=== PATIENT | male | born 1970 | race Hispanic/Latino ===

== ENCOUNTER → 2019-08-18 | Outpatient (CLI) | payer OTHER, MEDICARE | END | disposition home or self-care (01) | LOC: WHH 09:55 | PROVIDERS: ATTEND Podiatrist Foot & Ankle Surgery | DX: I70.235 Atherosclerosis of native arteries of right leg with ulceration of other part of foot (principal); L97.511 Non-pressure chronic ulcer of other part of right foot limited to breakdown of skin; I70.245 Atherosclerosis of native arteries of left leg with ulceration of other part of foot; L97.521 Non-pressure chronic ulcer of other part of left foot limited to breakdown of skin; I70.233 Atherosclerosis of native arteries of right leg with ulceration of ankle; L97.311 Non-pressure chronic ulcer of right ankle limited to breakdown of skin | CPT/HCPCS: 73630 ×2; 99205; A6207 ==

== ENCOUNTER 2020-06-20 17:57 | Inpatient (IN) | payer MEDICARE ==
[~2020-06-20] VITALS: Ht 167.6 cm; Wt 81.0 kg
[2020-06-20 22:20] VITALS: BP 101/66
[2020-06-20] MEDS ORDERED: ALPR2TAB7 PO (22:54)
[2020-06-20] MEDS ORDERED: OXYC30TA2 PO (22:54)
[2020-06-20] MEDS ORDERED: GABA800T9 PO (22:54)
[2020-06-20] MEDS ORDERED: ALBU2.5V2 NEB (22:54)
[2020-06-20] MEDS ORDERED: FLUT1BLS3 IH (22:54)
[2020-06-21] VITALS (27 sets, daily range): BP systolic 89–129; BP diastolic 52–82
[2020-06-21] MEDS ORDERED: LABETALOL HCL 5 MG/ML 20ML VIAL IV PRN
[2020-06-21] MEDS ORDERED: ONDANSETRON HCL 4 MG/2 ML VIAL IVP PRN
[2020-06-21 00:22] LABS: ALBUMIN 1.9 g/dL (3.5-5.0); BILIRUBIN,TOTAL 0.3 mg/dL (0.2-1.0); CREATININE 0.6 mg/dL (0.5-1.5); POTASSIUM 4.4 mmol/L (3.5-5.1); TOTAL PROTEIN, SERUM 7.7 g/dL (6.0-8.3)
[2020-06-21 00:27] LABS: BASOPHILS % (AUTO) 0.4 % (0.0-5.0); EOSINOPHILS % (AUTO) 0.4 % (0.0-8.0); HEMATOCRIT 23.1 % (42-54); LYMPHOCYTES % (AUTO) 42.7 % (21.0-51.0); MEAN CORPUSCULAR HEMOGLOBIN 21.5 pg (27.0-33.0); MEAN CORPUSCULAR HGB CONC 30.7 g/dL (32.0-36.0); MONOCYTES % (AUTO) 10.8 % (3.0-13.0); NEUTROPHILS % (AUTO) 45.2 % (40.0-77.0); PLATELET COUNT (AUTO) 449 K/uL (130-400); RED CELL DISTRIBUTION WIDTH 21.5 % (11.0-15.5)
[2020-06-21] MEDS ORDERED: HYDROMORPHONE HCL 0.5 MG/0.5 ML ML IVP PRN (00:30)
[2020-06-21] MEDS ORDERED: HYDROMORPHONE HCL 0.5 MG/0.5 ML ML ONE (00:33)
[2020-06-21] MEDS ORDERED: ACETAMINOPHEN 325 MG TAB PO PRN (02:00)
[2020-06-21] MEDS ORDERED: PHARMACY COMMUNICATION MISC SCH (02:00)
[2020-06-21] MEDS: MEROPENEM 1 GM VIAL IVP SCH ×3 (06:00→20:18)
[2020-06-21] MEDS ORDERED: MEROPENEM 1 GM VIAL ONE (06:18)
[2020-06-21] MEDS: HYDROMORPHONE HCL 0.5 MG/0.5 ML ML IVP PRN ×2 (06:36→10:15)
[2020-06-21] MEDS ORDERED: BUDESONIDE 0.5 MG/2 ML INH IH ONE (07:08)
[2020-06-21] MEDS: BUDESONIDE 0.5 MG/2 ML INH IH SCH ×2 (07:11→18:24)
[2020-06-21] MEDS ORDERED: COMPOUND IV MISC 1 EACH IVSOLN MISC PRN (07:30)
[2020-06-21] MEDS: OXYCODONE HCL 20 MG TAB.SR.12H PO SCH ×2 (08:31→20:17)
[2020-06-21] MEDS: SIMETHICONE 80 MG TAB.CHEW PO SCH ×3 (09:00→20:17)
[2020-06-21] MEDS: POLYETHYLENE GLYCOL 3350 17 GM POWD.PACK PO SCH (09:00)
[2020-06-21] MEDS: SENNOSIDES 8.6 MG TABLET PO SCH ×2 (09:00→20:17)
[2020-06-21] MEDS: PANTOPRAZOLE SODIUM 40 MG TABLET.DR PO SCH (09:00)
[2020-06-21] MEDS: GABAPENTIN 300 MG CAPSULE PO SCH ×3 (09:00→20:17)
[2020-06-21] MEDS: NICOTINE 14 MG/ 24 HR PATCH TD SCH (09:00)
[2020-06-21] MEDS: MIDODRINE HCL 5 MG TABLET PO SCH ×3 (09:00→20:17)
[2020-06-21] MEDS: BALSAM PERU/CASTOR OIL 60 GM TUBE TP SCH ×2 (09:00→20:21)
[2020-06-21] MEDS: VITAMIN D3 1000 UNIT PO SCH (09:00)
[2020-06-21] MEDS ORDERED: SODIUM CHLORIDE 0.9% 1000ML 1,000 ML IV ONE (11:29)
[2020-06-21] MEDS ORDERED: DEXAMETHASONE SOD PHOSPHATE 10MG/ML 1ML VIAL ONE (12:23)
[2020-06-21] MEDS ORDERED: ROCURONIUM 10MG/1ML SYR 10 MG/ML ML ONE ×2 (12:24→14:09)
[2020-06-21] MEDS ORDERED: MIDAZOLAM HCL 1 MG/ML 2ML VIAL ONE (12:24)
[2020-06-21] MEDS ORDERED: ONDANSETRON HCL 4 MG/2 ML VIAL ONE (12:24)
[2020-06-21] MEDS ORDERED: PROPOFOL 10 MG/ML 20ML VIAL IV ONE (12:24)
[2020-06-21] MEDS ORDERED: LIDOCAINE HCL MPF 1% 5ML VIAL ONE (12:24)
[2020-06-21] MEDS ORDERED: FENTANYL CITRATE PF 50 MCG/1 ML 2ML VIAL ONE ×2 (12:24→13:08)
[2020-06-21] MEDS ORDERED: PHENYLEPHRINE HCL 10 MG/ML 1ML VIAL IV ONE (13:22)
[2020-06-21] MEDS ORDERED: EPHEDRINE SULFATE 50 MG/ML AMPULE ONE (16:06)
[2020-06-21] MEDS ORDERED: NEOSTIGMINE 5MG/5ML SYR IV ONE (16:10)
[2020-06-21] MEDS ORDERED: GLYCOPYRROLATE 1 MG/5 ML SYRINGE ONE (16:10)
[2020-06-21] MEDS ORDERED: MEPERIDINE-PF 25 MG/ML SYG ONE (17:13)
[2020-06-21] MEDS: DAPTOMYCIN 500 MG in SODIUM CHLORIDE 0.9% 50 ML IV SCH (19:13)
[2020-06-21] MEDS: NIACIN 250 MG TABLET.SA PO SCH (20:17)
[2020-06-22] VITALS (8 sets, daily range): BP systolic 87–115; BP diastolic 54–75
[2020-06-22] MEDS: HYDROMORPHONE 1 MG/1 ML AMP IVP PRN ×5 (00:31→21:26)
[2020-06-22 04:38] LABS: BASOPHILS % (AUTO) 0.2 % (0.0-5.0); EOSINOPHILS % (AUTO) 0.2 % (0.0-8.0); HEMATOCRIT 24.9 % (42-54); LYMPHOCYTES % (AUTO) 36.3 % (21.0-51.0); MEAN CORPUSCULAR HEMOGLOBIN 22.1 pg (27.0-33.0); MEAN CORPUSCULAR HGB CONC 30.9 g/dL (32.0-36.0); MEAN CORPUSCULAR VOLUME 71.3 fL (79-99); MONOCYTES % (AUTO) 9.4 % (3.0-13.0); NEUTROPHILS % (AUTO) 53.4 % (40.0-77.0); PLATELET COUNT (AUTO) 399 K/uL (130-400); RED BLOOD CELL COUNT(AUTO) 3.49 MIL/uL (4.50-6.20); RED CELL DISTRIBUTION WIDTH 20.1 % (11.0-15.5); WHITE BLOOD COUNT (AUTO) 10.2 K/uL (4.8-10.8)
[2020-06-22] MEDS: MEROPENEM 1 GM VIAL IVP SCH ×3 (04:55→20:26)
[2020-06-22 04:56] LABS: INR 1.11 (0.85-1.15)
[2020-06-22 04:57] LABS: PARTIAL THROMBOPLASTIN TIME 27.9 SEC (26.3-35.5)
[2020-06-22 05:08] LABS: CREATININE 0.7 mg/dL (0.5-1.5); POTASSIUM 4.4 mmol/L (3.5-5.1)
[2020-06-22 05:25] LABS: % IRON SATURATION 5.9 % (30-44)
[2020-06-22] MEDS: ALBUTEROL SULFATE 0.083% 2.5 MG/3 ML INH IH PRN (06:37)
[2020-06-22] MEDS: BUDESONIDE 0.5 MG/2 ML INH IH SCH ×2 (06:37→19:13)
[2020-06-22] MEDS: BALSAM PERU/CASTOR OIL 60 GM TUBE TP SCH ×2 (09:00→20:26)
[2020-06-22] MEDS: VITAMIN D3 1000 UNIT PO SCH (09:00)
[2020-06-22] MEDS: ENOXAPARIN SODIUM 40 MG/0.4 ML SYRINGE SQ SCH (10:01)
[2020-06-22] MEDS: POLYETHYLENE GLYCOL 3350 17 GM POWD.PACK PO SCH (10:01)
[2020-06-22] MEDS: SIMETHICONE 80 MG TAB.CHEW PO SCH ×3 (10:02→20:24)
[2020-06-22] MEDS: SENNOSIDES 8.6 MG TABLET PO SCH ×2 (10:02→20:24)
[2020-06-22] MEDS: MIDODRINE HCL 5 MG TABLET PO SCH ×3 (10:02→20:24)
[2020-06-22] MEDS: GABAPENTIN 300 MG CAPSULE PO SCH ×3 (10:02→20:24)
[2020-06-22] MEDS: PANTOPRAZOLE SODIUM 40 MG TABLET.DR PO SCH (10:02)
[2020-06-22] MEDS: OXYCODONE HCL 20 MG TAB.SR.12H PO SCH ×2 (10:03→20:23)
[2020-06-22] MEDS: NICOTINE 14 MG/ 24 HR PATCH TD SCH (10:06)
[2020-06-22] MEDS: NIACIN 250 MG TABLET.SA PO SCH (20:23)
[2020-06-22] MEDS: DAPTOMYCIN 500 MG in SODIUM CHLORIDE 0.9% 50 ML IV SCH (20:24)
[2020-06-22] MEDS: FERROUS SULFATE 325 MG TABLET.DR PO SCH (20:24)
[2020-06-23] MEDS: HYDROMORPHONE 1 MG/1 ML AMP IVP PRN ×6 (01:32→20:49)
[2020-06-23 04:00] VITALS: BP 95/55
[2020-06-23 04:04] LABS: HEMATOCRIT 24.1 % (42-54); MEAN CORPUSCULAR HEMOGLOBIN 22.7 pg (27.0-33.0); MEAN CORPUSCULAR HGB CONC 31.1 g/dL (32.0-36.0); RED BLOOD CELL COUNT(AUTO) 3.3 MIL/uL (4.50-6.20); RED CELL DISTRIBUTION WIDTH 20.4 % (11.0-15.5); WHITE BLOOD COUNT (AUTO) 9.3 K/uL (4.8-10.8)
[2020-06-23 04:13] LABS: CREATININE 0.6 mg/dL (0.5-1.5); POTASSIUM 4.3 mmol/L (3.5-5.1)
[2020-06-23] MEDS: MEROPENEM 1 GM VIAL IVP SCH ×3 (05:25→20:42)
[2020-06-23] MEDS: BUDESONIDE 0.5 MG/2 ML INH IH SCH ×2 (06:27→18:20)
[2020-06-23] MEDS: ALBUTEROL SULFATE 0.083% 2.5 MG/3 ML INH IH PRN (06:27)
[2020-06-23 08:00] VITALS: BP 91/50
[2020-06-23] MEDS: SENNOSIDES 8.6 MG TABLET PO SCH ×2 (08:06→20:43)
[2020-06-23] MEDS: SIMETHICONE 80 MG TAB.CHEW PO SCH ×3 (08:06→20:44)
[2020-06-23] MEDS: ENOXAPARIN SODIUM 40 MG/0.4 ML SYRINGE SQ SCH (08:07)
[2020-06-23] MEDS: GABAPENTIN 300 MG CAPSULE PO SCH ×3 (08:07→20:44)
[2020-06-23] MEDS: POLYETHYLENE GLYCOL 3350 17 GM POWD.PACK PO SCH (08:07)
[2020-06-23] MEDS: MIDODRINE HCL 5 MG TABLET PO SCH ×3 (08:07→20:43)
[2020-06-23] MEDS: FERROUS SULFATE 325 MG TABLET.DR PO SCH ×2 (08:07→20:44)
[2020-06-23] MEDS: PANTOPRAZOLE SODIUM 40 MG TABLET.DR PO SCH (08:07)
[2020-06-23] MEDS: NICOTINE 14 MG/ 24 HR PATCH TD SCH (08:08)
[2020-06-23] MEDS: VITAMIN D3 1000 UNIT PO SCH (08:08)
[2020-06-23] MEDS: OXYCODONE HCL 20 MG TAB.SR.12H PO SCH ×2 (09:00→21:00)
[2020-06-23] MEDS: BALSAM PERU/CASTOR OIL 60 GM TUBE TP SCH ×2 (09:00→19:17)
[2020-06-23 11:38] VITALS: BP 99/58
[2020-06-23 16:00] VITALS: BP 106/61
[2020-06-23] MEDS: DAPTOMYCIN 500 MG in SODIUM CHLORIDE 0.9% 50 ML IV SCH (18:35)
[2020-06-23 20:00] VITALS: BP 94/48
[2020-06-23] MEDS: NIACIN 250 MG TABLET.SA PO SCH (20:43)
[2020-06-23 23:00] VITALS: BP 91/48
[2020-06-24] MEDS: HYDROMORPHONE 1 MG/1 ML AMP IVP PRN ×6 (01:05→21:25)
[2020-06-24 04:00] VITALS: BP 98/57
[2020-06-24] MEDS: MEROPENEM 1 GM VIAL IVP SCH ×3 (05:05→21:19)
[2020-06-24 06:04] LABS: HEMATOCRIT 25.1 % (42-54); MEAN CORPUSCULAR HGB CONC 30.3 g/dL (32.0-36.0); MEAN CORPUSCULAR VOLUME 72.5 fL (79-99); RED BLOOD CELL COUNT(AUTO) 3.46 MIL/uL (4.50-6.20); RED CELL DISTRIBUTION WIDTH 20.5 % (11.0-15.5); WHITE BLOOD COUNT (AUTO) 8.4 K/uL (4.8-10.8)
[2020-06-24 06:24] LABS: CREATININE 0.6 mg/dL (0.5-1.5)
[2020-06-24] MEDS: BUDESONIDE 0.5 MG/2 ML INH IH SCH ×2 (07:03→19:09)
[2020-06-24] MEDS: BALSAM PERU/CASTOR OIL 60 GM TUBE TP SCH ×2 (08:05→20:50)
[2020-06-24 08:38] VITALS: BP 99/52
[2020-06-24] MEDS: VITAMIN D3 1000 UNIT PO SCH (09:00)
[2020-06-24] MEDS: PANTOPRAZOLE SODIUM 40 MG TABLET.DR PO SCH (09:14)
[2020-06-24] MEDS: NICOTINE 14 MG/ 24 HR PATCH TD SCH (09:14)
[2020-06-24] MEDS: SENNOSIDES 8.6 MG TABLET PO SCH ×2 (09:14→20:26)
[2020-06-24] MEDS: FERROUS SULFATE 325 MG TABLET.DR PO SCH ×2 (09:15→20:26)
[2020-06-24] MEDS: MIDODRINE HCL 5 MG TABLET PO SCH ×3 (09:15→20:26)
[2020-06-24] MEDS: GABAPENTIN 300 MG CAPSULE PO SCH ×3 (09:15→20:26)
[2020-06-24] MEDS: SIMETHICONE 80 MG TAB.CHEW PO SCH ×3 (09:15→20:26)
[2020-06-24] MEDS: POLYETHYLENE GLYCOL 3350 17 GM POWD.PACK PO SCH (09:15)
[2020-06-24] MEDS: ENOXAPARIN SODIUM 40 MG/0.4 ML SYRINGE SQ SCH (09:16)
[2020-06-24 12:15] VITALS: BP 106/62
[2020-06-24] MEDS: OXYCODONE HCL 20 MG TAB.SR.12H PO SCH (14:37)
[2020-06-24 17:43] VITALS: BP 104/64
[2020-06-24] MEDS: DAPTOMYCIN 500 MG in SODIUM CHLORIDE 0.9% 50 ML IV SCH (19:18)
[2020-06-24 20:00] VITALS: BP 94/43
[2020-06-24] MEDS: NIACIN 250 MG TABLET.SA PO SCH (20:26)
[2020-06-25] VITALS: BP 108/65
[2020-06-25] MEDS: OXYCODONE HCL 20 MG TAB.SR.12H PO SCH ×3 (01:04→20:48)
[2020-06-25] MEDS: HYDROMORPHONE 1 MG/1 ML AMP IVP PRN ×6 (01:25→21:39)
[2020-06-25 04:00] VITALS: BP 104/61
[2020-06-25] MEDS: MEROPENEM 1 GM VIAL IVP SCH ×3 (05:21→21:38)
[2020-06-25 05:44] LABS: HEMATOCRIT 24.2 % (42-54); MEAN CORPUSCULAR HEMOGLOBIN 22.4 pg (27.0-33.0); MEAN CORPUSCULAR VOLUME 72.2 fL (79-99); RED BLOOD CELL COUNT(AUTO) 3.35 MIL/uL (4.50-6.20); WHITE BLOOD COUNT (AUTO) 9.6 K/uL (4.8-10.8)
[2020-06-25 06:10] LABS: ALBUMIN 1.8 g/dL (3.5-5.0); BILIRUBIN,TOTAL 0.3 mg/dL (0.2-1.0); CREATININE 0.6 mg/dL (0.5-1.5); TOTAL PROTEIN, SERUM 7.4 g/dL (6.0-8.3)
[2020-06-25] MEDS: BUDESONIDE 0.5 MG/2 ML INH IH SCH ×2 (06:31→18:46)
[2020-06-25 08:10] VITALS: BP 102/50
[2020-06-25] MEDS: BALSAM PERU/CASTOR OIL 60 GM TUBE TP SCH ×2 (09:00→20:48)
[2020-06-25] MEDS: VITAMIN D3 1000 UNIT PO SCH (09:00)
[2020-06-25] MEDS: POLYETHYLENE GLYCOL 3350 17 GM POWD.PACK PO SCH (09:14)
[2020-06-25] MEDS: SIMETHICONE 80 MG TAB.CHEW PO SCH ×3 (09:14→20:47)
[2020-06-25] MEDS: PANTOPRAZOLE SODIUM 40 MG TABLET.DR PO SCH (09:15)
[2020-06-25] MEDS: FERROUS SULFATE 325 MG TABLET.DR PO SCH ×2 (09:15→20:46)
[2020-06-25] MEDS: GABAPENTIN 300 MG CAPSULE PO SCH ×3 (09:15→20:47)
[2020-06-25] MEDS: MIDODRINE HCL 5 MG TABLET PO SCH ×3 (09:15→20:47)
[2020-06-25] MEDS: SENNOSIDES 8.6 MG TABLET PO SCH ×2 (09:16→20:46)
[2020-06-25] MEDS: ENOXAPARIN SODIUM 40 MG/0.4 ML SYRINGE SQ SCH (09:17)
[2020-06-25] MEDS: NICOTINE 14 MG/ 24 HR PATCH TD SCH (10:15)
[2020-06-25 15:04] VITALS: BP 123/76
[2020-06-25 16:53] VITALS: BP 109/70
[2020-06-25] MEDS: DAPTOMYCIN 500 MG in SODIUM CHLORIDE 0.9% 50 ML IV SCH (17:47)
[2020-06-25 20:00] VITALS: BP 93/56
[2020-06-25] MEDS: NIACIN 250 MG TABLET.SA PO SCH (20:46)
[2020-06-26] VITALS (7 sets, daily range): BP systolic 93–120; BP diastolic 57–68
[2020-06-26] MEDS: HYDROMORPHONE 1 MG/1 ML AMP IVP PRN ×3 (03:29→12:28)
[2020-06-26 04:39] LABS: MEAN CORPUSCULAR HEMOGLOBIN 22.3 pg (27.0-33.0); MEAN CORPUSCULAR HGB CONC 30.9 g/dL (32.0-36.0); MEAN CORPUSCULAR VOLUME 72.1 fL (79-99); RED BLOOD CELL COUNT(AUTO) 3.19 MIL/uL (4.50-6.20); RED CELL DISTRIBUTION WIDTH 20.8 % (11.0-15.5); WHITE BLOOD COUNT (AUTO) 7.3 K/uL (4.8-10.8)
[2020-06-26] MEDS: MEROPENEM 1 GM VIAL IVP SCH ×3 (05:16→20:20)
[2020-06-26 05:25] LABS: CREATININE 0.7 mg/dL (0.5-1.5); MAGNESIUM 1.8 mg/dL (1.80-2.40); POTASSIUM 4.2 mmol/L (3.5-5.1)
[2020-06-26] MEDS: BUDESONIDE 0.5 MG/2 ML INH IH SCH ×2 (06:16→18:19)
[2020-06-26] MEDS: POLYETHYLENE GLYCOL 3350 17 GM POWD.PACK PO SCH (08:04)
[2020-06-26] MEDS: PANTOPRAZOLE SODIUM 40 MG TABLET.DR PO SCH (08:04)
[2020-06-26] MEDS: FERROUS SULFATE 325 MG TABLET.DR PO SCH ×2 (08:04→20:19)
[2020-06-26] MEDS: SENNOSIDES 8.6 MG TABLET PO SCH ×2 (08:04→20:19)
[2020-06-26] MEDS: GABAPENTIN 300 MG CAPSULE PO SCH ×3 (08:08→20:19)
[2020-06-26] MEDS: SIMETHICONE 80 MG TAB.CHEW PO SCH ×3 (08:08→20:20)
[2020-06-26] MEDS: MIDODRINE HCL 5 MG TABLET PO SCH ×3 (08:08→20:19)
[2020-06-26] MEDS: VITAMIN D3 1000 UNIT PO SCH (08:09)
[2020-06-26] MEDS: ENOXAPARIN SODIUM 40 MG/0.4 ML SYRINGE SQ SCH (08:09)
[2020-06-26] MEDS: BALSAM PERU/CASTOR OIL 60 GM TUBE TP SCH ×2 (09:26→20:21)
[2020-06-26] MEDS: NICOTINE 14 MG/ 24 HR PATCH TD SCH (09:27)
[2020-06-26] MEDS ORDERED: IRON SUCROSE COMPLEX IV SCH (15:30)
[2020-06-26] MEDS ORDERED: SODIUM CHLORIDE 0.9% IV SCH (15:30)
[2020-06-26] MEDS ORDERED: ACET-2247 PO (15:33)
[2020-06-26] MEDS ORDERED: Midodrine Hcl PO (15:33)
[2020-06-26] MEDS ORDERED: DAPT500V2 IV (15:33)
[2020-06-26] MEDS ORDERED: SENN8.6T32 PO (15:33)
[2020-06-26] MEDS ORDERED: FERR324T4 PO (15:33)
[2020-06-26] MEDS ORDERED: ONDA4VIA22 IVP (15:33)
[2020-06-26] MEDS ORDERED: NICO-704 TD (15:33)
[2020-06-26] MEDS ORDERED: PANT40TA PO (15:33)
[2020-06-26] MEDS ORDERED: ENOX40DI8 SQ (15:33)
[2020-06-26] MEDS ORDERED: BALS60OI TP (15:33)
[2020-06-26] MEDS ORDERED: GABA300C PO (15:33)
[2020-06-26] MEDS ORDERED: POLY17PO4 PO (15:33)
[2020-06-26] MEDS ORDERED: MERO1VIA23 IVP (15:33)
[2020-06-26] MEDS ORDERED: IRON SUCROSE COMPLEX 400 MG in SODIUM CHLORIDE 0.9% 250 ML IVP ONE (16:00)
[2020-06-26] MEDS: KETOROLAC TROMETHAMINE 15MG/ML IM PRN (16:41)
[2020-06-26] MEDS: DAPTOMYCIN 500 MG in SODIUM CHLORIDE 0.9% 50 ML IV SCH (18:13)
[2020-06-26] MEDS: NIACIN 250 MG TABLET.SA PO SCH (20:19)
[2020-06-27] MEDS: KETOROLAC TROMETHAMINE 15MG/ML IM PRN ×2 (00:13→05:23)
[2020-06-27 03:45] VITALS: BP 116/65
[2020-06-27] MEDS: MEROPENEM 1 GM VIAL IVP SCH ×2 (05:22→13:26)
[2020-06-27 05:34] LABS: BASOPHILS % (AUTO) 0.1 % (0.0-5.0); HEMATOCRIT 26.5 % (42-54); MEAN CORPUSCULAR HEMOGLOBIN 21.6 pg (27.0-33.0); MEAN CORPUSCULAR HGB CONC 29.8 g/dL (32.0-36.0); MEAN CORPUSCULAR VOLUME 72.6 fL (79-99); MONOCYTES % (AUTO) 6.9 % (3.0-13.0); NEUTROPHILS % (AUTO) 66.4 % (40.0-77.0); PLATELET COUNT (AUTO) 462 K/uL (130-400); RED BLOOD CELL COUNT(AUTO) 3.65 MIL/uL (4.50-6.20); RED CELL DISTRIBUTION WIDTH 20.1 % (11.0-15.5); WHITE BLOOD COUNT (AUTO) 7.9 K/uL (4.8-10.8)
[2020-06-27 05:53] LABS: ALBUMIN 1.9 g/dL (3.5-5.0); BILIRUBIN,TOTAL 0.4 mg/dL (0.2-1.0); CREATININE 0.6 mg/dL (0.5-1.5); MAGNESIUM 1.9 mg/dL (1.80-2.40); POTASSIUM 3.8 mmol/L (3.5-5.1); TOTAL PROTEIN, SERUM 7.8 g/dL (6.0-8.3)
[2020-06-27] MEDS: BUDESONIDE 0.5 MG/2 ML INH IH SCH ×2 (07:04→18:09)
[2020-06-27 08:15] VITALS: BP 119/75
[2020-06-27] MEDS: VITAMIN D3 1000 UNIT PO SCH (09:00)
[2020-06-27] MEDS: SIMETHICONE 80 MG TAB.CHEW PO SCH ×2 (09:16→13:26)
[2020-06-27] MEDS: MIDODRINE HCL 5 MG TABLET PO SCH ×2 (09:17→13:26)
[2020-06-27] MEDS: PANTOPRAZOLE SODIUM 40 MG TABLET.DR PO SCH (09:17)
[2020-06-27] MEDS: GABAPENTIN 300 MG CAPSULE PO SCH ×2 (09:17→13:26)
[2020-06-27] MEDS: FERROUS SULFATE 325 MG TABLET.DR PO SCH (09:17)
[2020-06-27] MEDS: SENNOSIDES 8.6 MG TABLET PO SCH (09:17)
[2020-06-27] MEDS: BALSAM PERU/CASTOR OIL 60 GM TUBE TP SCH (09:18)
[2020-06-27] MEDS: POLYETHYLENE GLYCOL 3350 17 GM POWD.PACK PO SCH (09:18)
[2020-06-27] MEDS: NICOTINE 14 MG/ 24 HR PATCH TD SCH (09:18)
[2020-06-27] MEDS: ENOXAPARIN SODIUM 40 MG/0.4 ML SYRINGE SQ SCH (09:18)
[2020-06-27] MEDS: HYDROMORPHONE 1 MG/1 ML AMP IVP PRN ×3 (09:19→18:41)
[2020-06-27 12:04] VITALS: BP 116/73
[2020-06-27 16:35] VITALS: BP 143/72
[2020-06-27] MEDS: DAPTOMYCIN 500 MG in SODIUM CHLORIDE 0.9% 50 ML IV SCH (18:41)
== END 2020-06-27 20:30 | DRG 616 ==
LOC: OBSVTOIN 22:38 → INTOOBSV 22:38 → 3CH 22:38 → 4BH 06-22 18:19
PROVIDERS: ADMIT Internal Medicine Critical Care Medicine; ATTEND Internal Medicine Critical Care Medicine
PROC: 0Y6J0Z1 Detachment at Left Lower Leg, High, Open Approach (ICD-10-PCS; principal; 2020-06-21 12:23)
PROC: 0Y6H0Z1 Detachment at Right Lower Leg, High, Open Approach (ICD-10-PCS; 2020-06-21 12:23)
DX: E11.69 Type 2 diabetes mellitus with other specified complication (principal); L89.154 Pressure ulcer of sacral region, stage 4; T81.49XA Infection following a procedure, other surgical site, initial encounter; M86.9 Osteomyelitis, unspecified; G82.20 Paraplegia, unspecified; L97.919 Non-pressure chronic ulcer of unspecified part of right lower leg with unspecified severity; L97.929 Non-pressure chronic ulcer of unspecified part of left lower leg with unspecified severity; L03.115 Cellulitis of right lower limb; L03.116 Cellulitis of left lower limb; M46.28 Osteomyelitis of vertebra, sacral and sacrococcygeal region; J44.9 Chronic obstructive pulmonary disease, unspecified; E11.65 Type 2 diabetes mellitus with hyperglycemia; I89.0 Lymphedema, not elsewhere classified; G89.29 Other chronic pain; D63.8 Anemia in other chronic diseases classified elsewhere; Z68.28 Body mass index [BMI] 28.0-28.9, adult; E11.51 Type 2 diabetes mellitus with diabetic peripheral angiopathy without gangrene; E11.621 Type 2 diabetes mellitus with foot ulcer; E66.9 Obesity, unspecified; F32.9 Major depressive disorder, single episode, unspecified; I10 Essential (primary) hypertension; L97.519 Non-pressure chronic ulcer of other part of right foot with unspecified severity; L97.529 Non-pressure chronic ulcer of other part of left foot with unspecified severity; Z72.0 Tobacco use; Z86.711 Personal history of pulmonary embolism; Z93.3 Colostomy status; Z88.0 Allergy status to penicillin; Z88.5 Allergy status to narcotic agent; Z88.8 Allergy status to other drugs, medicaments and biological substances; Z74.01 Bed confinement status
CPT/HCPCS: 36415; 76700; 80048; 80053; 82728; 82948; 83540; 83550; 83735; 84145; 85025; 85027; 85610; 85730; 86850; 86900; 86901; 86923; 94640; 94664; G0378; J0878; J1100; J1170; J1650; J1756; J1885; J2175; J2185; J2250; J2370; J2405; J2704; J2710; J3010; J3490; J7030; J7050; P9016